=== PATIENT | female | born 1995 | race Caucasian/White ===

== ENCOUNTER 2019-09-20 15:41 | Emergency (ER) | payer OTHER, SELFPAY ==
[2019-09-20 15:50] VITALS: BP 143/70; PULSE 102; RESP 16; TEMP 36.5; O2SAT 100
--- NOTE | 2019-09-20 15:57 | ED.GENADULT ---
HPI - General Adult General Chief complaint: Skin/Abscess/Foreign Body Stated complaint: insect bite Time Seen by Provider: 09/20/19 15:58 Source: patient Mode of arrival: ambulatory Limitations: no limitations History of Present Illness HPI narrative: 24-year-old female patient presents to the [facility] with complaints of insect bite behind the right ankle for the past 2 weeks. Patient states that the area is itchy. Denies any fevers, body aches, joint pain. Denies any chest pain or shortness of breath. Patient states she is put a little bit of chamomile lotion on it but denies using any type of topical antibiotic ointment or hydrocortisone cream. Denies any discharge coming from the area. Related Data Allergies Allergy/AdvReac Type Severity Reaction Status Date / Time No Known Allergies Allergy Verified 09/20/19 15:49 Review of Systems Review of Systems: Narrative: CONSTITUTIONAL: Denies fever, chills, or sweats. EYES: Denies visual changes, redness, or discharge. ENT: Denies rhinorrhea, congestion, sore throat, or otalgia. CARDIOVASCULAR: Denies chest pain, palpitations, or edema. RESPIRATORY: Denies cough or dyspnea. GASTROINTESTINAL: Denies abdominal pain, nausea, vomiting, or diarrhea. GENITOURINARY: Denies dysuria or hematuria. SKIN: Denies rash or itching. Positive insect bite to back of right ankle x2 weeks MUSCULOSKELETAL: Denies back pain, joint pain, or myalgia. NEUROLOGIC: Denies headache, numbness, or weakness. PSYCHIATRIC: Denies anxiety or depression. PMFSH Comments At the time of my signature I agree with nursing past medical history, surgical, social, and family history. There is no relevant family history pertinent to the presenting complaint. Exam Narrative: Exam Narrative: GENERAL: Well-appearing, well-nourished, and in no acute distress. HEAD: Normocephalic, atraumatic. EYES: PERRLA and EOMI. ENT: Nares clear, no rhinorrhea or epistaxis. Mucous membranes moist. NECK: Supple. No lymphadenopathy CHEST: Clear to auscultation. No respiratory distress. HEART: Regular rate and rhythm. No murmur heard. Normal peripheral pulses. ABDOMEN: Soft, nontender, nondistended, normal active bowel sounds. EXTREMITIES: Normal range of motion. No edema. SKIN: Warm, dry, no rash. Patient has small 1.5 cm in diameter insect bite with a dry center punctate casey noted to the posterior right ankle. There is no discharge noted. There is no swelling, or warmth present. No tenderness noted on palpation NEURO: No focal deficits. Alert and oriented x3. Course Vital Signs Vital signs: Vital Signs Temperature 36.5 C 09/20/19 15:50 Pulse Rate 102 H 09/20/19 15:50 Respiratory Rate 16 09/20/19 15:50 Blood Pressure 143/70 H 09/20/19 15:50 Pulse Oximetry 100 09/20/19 15:50 Temperature 36.5 C 09/20/19 15:50 Pulse Rate 102 H 09/20/19 15:50 Respiratory Rate 16 09/20/19 15:50 Blood Pressure 143/70 H 09/20/19 15:50 Pulse Oximetry 100 09/20/19 15:50 Vital signs reviewed. The patient has been informed that they may have pre-hypertension or Hypertension based on a BP reading in the department. I recommend that the patient call the primary care provider listed on their discharge instructions or a physician of their choice this week to arrange follow up for further evaluation of possible pre-hypertension or Hypertension Medical Decision Making Differential Diagnosis Differential Diagnosis: Differential diagnosis: Abscess, cellulitis, hidradenitis, laceration, puncture wound. Discussed with patient this does look like an insect bite really does not look highly infected at this time. Discussed with her that we will give her some topical antibiotic ointment to reduce risk of infection as well as recommend that she use [id number] hydrocortisone cream to help with the itching. Discussed with patient she has worsening symptoms such as fevers, body aches, chills, swelling or the area continues to get big
== END 2019-09-20 16:10 | disposition home or self-care (01) ==
PROVIDERS: Emergency Provider Nurse Practitioner Family; PCP Family Medicine
DX: S80.861A Insect bite (nonvenomous), right lower leg, initial encounter (principal); W57.XXXA Bitten or stung by nonvenomous insect and other nonvenomous arthropods, initial encounter
CPT/HCPCS: 99203; G0463